=== PATIENT | male | born 1965 | race Caucasian/White ===

== ENCOUNTER 2024-11-16 13:09 | Emergency (ER) | payer MEDICARE, SELFPAY ==
[2024-11-16] VITALS (16 sets, daily range): BP systolic 133–164; BP diastolic 89–100; PULSE 72–85; TEMP 36.4; O2SAT 94–100; BMI 39.3
--- NOTE | 2024-11-16 13:31 | ECG_ITS ---
[facility] Test Date: 2024-11-16 Pat Name: ANNA TEE Department: Room: - Gender: Male Incident Response Coordinator: : [id number] Requested By: [id number] Order Number: [id number] Reading MD: SABAS MCRAE M.D. Measurements Intervals [place] Rate: 69 P: 38 NH: 166 QRS: 1 QRSD: 98 T: 78 QT: 390 QTc: 410 Interpretive Statements 1100 Sinus rhythm 1570 with occasional ventricular premature complexes 3134 Anterior myocardial infarction, age undetermined 8102 Low QRS voltage in chest leads 9150 abnormal ECG No previous ECG available for comparison Electronically Signed On 11-17-2024 21:41:19 EDT by SABAS MCRAE M.D.
[2024-11-16 13:39] LABS: Basophils Absolute Auto 0.1 10^3/uL (0.0-0.1); Eosinophils Absolute Auto 0.1 10^3/uL (0.0-0.7); Eosinophils Percent Auto 0.6 % (0.9-7.0); Hematocrit 44.8 % (42.0-54.0); Hemoglobin 14.5 g/dL (14.0-18.0); Immature Granulocytes Abs Auto 0.03 10^3/uL (0.00-0.03); Immature Granulocytes Pct Auto 0.4 % (0.0-0.5); Lymphocytes Absolute Auto 2.2 10^3/uL (1.2-3.8); Lymphocytes Percent Auto 26.6 % (20.5-60.0); Mean Corpuscular HGB Conc 32.4 g/dL (29.9-35.2); Mean Corpuscular Volume 89.6 fL (80.0-94.0); Mean Platelet Volume 10.6 fL (9.5-13.5); Monocytes Absolute Auto 0.7 10^3/uL (0.3-0.8); Monocytes Percent Auto 8.4 % (1.7-12.0); Neutrophils Absolute Auto 5.3 10^3/uL (1.4-6.5); Platelet Count 220 10^3/uL (150-450); Red Cell Distribution Width 13.2 % (11.0-15.0); White Blood Count 8.4 10^3/uL (4.0-11.0)
[2024-11-16 13:54] LABS: INR 1.02; Prothrombin Time 10.8 sec (9.0-11.6)
[2024-11-16 13:59] LABS: Alanine Aminotransferase 21 U/L (16-63); Albumin Globulin Ratio 1.1; Albumin Level 3.4 g/dL (3.4-5.0); Alkaline Phosphatase 75 U/L (46-116); Anion Gap 11.6; Aspartate Amino Transferase 17 U/L (15-37); BUN Creatinine Ratio 10.8; Bilirubin Total 0.6 mg/dL (0.2-1.0); Calcium 8.5 mg/dL (8.5-10.1); Carbon Dioxide 30.3 mmol/L (21.0-32.0); Chloride 103 mmol/L (98-107); Estimated GFR (African America >60 (>=60 mL/min/1.73m^2); Estimated GFR (Non-African Ame >60 (>=60 mL/min/1.73m^2); Globulin 3.2 g/dL; Glucose 102 mg/dL (74-106); Magnesium 1.9 mg/dL (1.8-2.4); Potassium 3.9 mmol/L (3.5-5.1); Sodium 141 mmol/L (136-145); Total Protein 6.6 g/dL (6.4-8.2); Troponin I High Sensitivity 11.5 pg/mL (4.0-76.1)
--- NOTE | 2024-11-16 14:32 | ED.DIZZY1 ---
HPI - Dizziness General Chief Complaint: Dizziness Stated Complaint: DIZZINESS Time Seen by Provider: 11/16/24 13:23 Source: patient Mode of arrival: walk-in History of Present Illness HPI Narrative: The patient is 58-year-old male with history of congestive heart failure with a defibrillator, coming to the ER with almost 1 week history of having generalized weakness sometimes dizziness, he mentioned that sometimes with episodes of dizziness associated with sense of anxiety, and sometimes like his heart racing, the patient is taking his NyQuil and DayQuil daily for the last few days at least since he started having his symptoms a week ago He denies any other complaints of cough fever shortness of breath nausea vomiting but he does have some generalized weakness and tiredness and fatigue Related Data Home Medications ?Medication ?Instructions ?Recorded ?Confirmed amitriptyline 25 mg tablet 25 mg PO DAILY 11/16/24 11/16/24 atorvastatin 80 mg tablet 80 mg PO DAILY 11/16/24 11/16/24 carvedilol 12.5 mg tablet 12.5 mg PO Q12H 11/16/24 11/16/24 furosemide 40 mg tablet 40 mg PO Q12H 11/16/24 11/16/24 metformin 500 mg tablet,extended 500 mg PO DAILY 11/16/24 11/16/24 release 24 hr pantoprazole 40 mg tablet,delayed 40 mg PO Q12H 11/16/24 11/16/24 release semaglutide 0.25 mg or 0.5 mg (2 0.25 mg subcut .weekly 11/16/24 11/16/24 mg/3 mL) subcutaneous pen injector (Ozempic) tamsulosin 0.4 mg capsule 0.4 mg PO Q24H 11/16/24 11/16/24 Allergies Allergy/AdvReac Type Severity Reaction Status Date / Time Penicillins AdvReac Severe Anaphylaxis Verified 11/16/24 13:15 Review of Systems ROS Status of ROS 10 or more systems reviewed and unremarkable except as noted in history and below PFSH PFSH Social History Little interest or pleasure in doing things: not at all Feeling down, depressed, or hopeless: not at all Exam Narrative Exam Narrative: Nurses notes and vital signs reviewed and patient is not hypoxic. General: Well-appearing and in no apparent distress. Skin: Warm, dry, no pallor noted. No rash. Head: Normocephalic, atraumatic. Neck: Supple, non-tender. Eye: Pupils are equal, round and EOMI. No scleral icterus. Cardiovascular: Regular Rate and Rhythm without murmur, gallop or rub. Respiratory: No accessory muscle use or respiratory distress. Lungs are clear to auscultation, no wheezing, rales or rhonchi Chest Wall: no tenderness Back: No midline thoracic or lumbar vertebral tenderness. No CVA tenderness Musculoskeletal: normal ROM, no calf or popliteal tenderness, no lower extremity edema/swelling GI: Abdomen is soft, non-distended. Normal bowel sounds. No masses appreciated. No tenderness to palpation. No rebound, guarding, or rigidity noted. Neurological: A&O x4. No cranial nerve dysfunction observed. No truncal ataxia. Moves all extremities. Sensation intact. Psychiatric: Cooperative and interactive. Normal mood and affect. Constitutional Vital Signs, click to edit/add: Last Vital Signs Temp 97.6 F 11/16/24 13:15 Pulse 73 11/16/24 15:30 Resp 17 11/16/24 15:30 BP 139/91 11/16/24 15:30 Pulse Ox 96 11/16/24 15:30 O2 Del Method Room Air 11/16/24 13:35 Course Vital Signs Vital signs: Vital Signs Temperature 97.6 F 11/16/24 13:15 Pulse Rate 73 11/16/24 13:15 Respiratory Rate 18 11/16/24 13:15 Blood Pressure 164/100 H 11/16/24 13:15 Pulse Oximetry 98 11/16/24 13:15 Temperature 97.6 F 11/16/24 13:15 Pulse Rate 73 11/16/24 15:30 Respiratory Rate 17 11/16/24 15:30 Blood Pressure 139/91 11/16/24 15:30 Pulse Oximetry 96 11/16/24 15:30 Oxygen Delivery Method Room Air 11/16/24 13:35 MDM - Dizziness MDM Narrative Medical decision making narrative: The patient EKG showing sinus rhythm with a heart rate of 69 there is marked irregularity mostly paced rhythm the patient have a history of pacemaker rate is [address] elevation or depression Chest x-ray showed no acute pathology CBC showed no acute pathology as well as chemistry and urinalysis and BNP and troponin are all normal The patient mentioned in his history that he is taken DayQuil and NyQuil daily and he does not know that he is not supposed to take any DayQuil because it have epinephrine at this, I explained to the patient that he is not supposed to take any medication that is not safe with his congestive heart failure Right now the patient will be discharged home with monitoring his symptoms he already have a defibrillator placed for possible tachyarrhythmia and there is no pathology detected in my workup today The patient is to come back to the ER in case of any symptoms or concerns The patient is to follow up with primary care physician in next 2-3 days or to return to the emergency department should any of the signs or symptoms worsen or new symptoms develop. The patient agrees with the following Diagnosis and Treatment plan and the patient will be discharged home. Lab Data Labs: Lab Results 11/16/24 11/16/24 Range/Units 13:25 14:25 WBC 8.4 (4.0-11.0) 10^3/uL RBC 5.00 (4.70-6.10) 10^6/uL Hgb 14.5 (14.0-18.0) g/dL Hct 44.8 (42.0-54.0) % MCV 89.6 (80.0-94.0) fL MCH 29.0 (25.9-34.0) pg MCHC 32.4 (29.9-35.2) g/dL RDW 13.2 (11.0-15.0) % Plt Count 220 (150-450) 10^3/uL MPV 10.6 (9.5-13.5) fL Neut % (Auto) 63.0 (43.0-75.0) % Lymph % (Auto) 26.6 (20.5-60.0) % [place] % (Auto) 8.4 (1.7-12.0) % Eos % (Auto) 0.6 L (0.9-7.0) % Baso % (Auto) 1.0 (0.2-2.0) % Neut # (Auto) 5.3 (1.4-6.5) 10^3/uL Lymph # (Auto) 2.2 (1.2-3.8) 10^3/uL [place] # (Auto) 0.7 (0.3-0.8) 10^3/uL Eos # (Auto) 0.1 (0.0-0.7) 10^3/uL Baso # (Auto) 0.1 (0.0-0.1) 10^3/uL Abs Immat Gran (auto) 0.03 (0.00-0.03) 10^3/uL Imm/Tot Granulo (auto) 0.4 (0.0-0.5) % PT 10.8 (9.0-11.6) sec INR 1.02 Sodium 141 (136-145) mmol/L Potassium 3.9 (3.5-5.1) mmol/L Chloride 103 (98-107) mmol/L Carbon Dioxide 30.3 (21.0-32.0) mmol/L Anion Gap 11.6 BUN 12.0 (7.0-18.0) mg/dL Creatinine 1.11 (0.70-1.30) mg/dL Est GFR ( Amer) >60 (>=60 mL/min/1.73m^2) Est GFR (Non-Af Amer) >60 (>=60 mL/min/1.73m^2) BUN/Creatinine Ratio 10.8 Glucose 102 (74-106) mg/dL Calcium 8.5 (8.5-10.1) mg/dL Magnesium 1.9 (1.8-2.4) mg/dL Total Bilirubin 0.6 (0.2-1.0) mg/dL AST 17 (15-37) U/L ALT 21 (16-63) U/L Alkaline Phosphatase 75 (46-116) U/L Troponin I High Sens 11.5 (4.0-76.1) pg/mL NT-Pro-B Natriuret Pep 230.0 (<=900.0) pg/mL Total Protein 6.6 (6.4-8.2) g/dL Albumin 3.4 (3.4-5.0) g/dL Globulin 3.2 g/dL Albumin/Globulin Ratio 1.1 Urine Color Lt. yellow (YELLOW) Urine Clarity Clear (CLEAR) Urine pH 6.0 (5.0-9.0) Ur Specific [place] <=1.005 A (1.005-1.025) Urine Protein Negative (NEG/TRACE) mg/dL Urine Glucose (UA) Negative (NEGATIVE) mg/dL Urine Ketones Negative (NEGATIVE) mg/dL Urine Occult Blood Trace-i (NEGATIVE) Urine Nitrite Negative (NEGATIVE) Urine Bilirubin Negative (NEGATIVE) Urine Urobilinogen 1.0 (0.2-1.0) EU/dL Ur Leukocyte Esterase Negative (NEGATIVE) Urine RBC 0-2 (0-2) #/HPF Urine WBC 0-2 A (NONE SEEN) #/HPF Ur Squamous Epith Cells None seen (NONE/RARE) #/LPF Urine Crystals None seen (None Seen) #/HPF Urine Bacteria None seen (NONE SEEN) #/HPF Urine Casts None seen (NONE SEEN) #/LPF Urine Mucus None seen (NONE SEEN) Ur Culture Indicated? No Discharge Plan Discharge Chief Complaint: Dizziness Clinical Impression: Post viral syndrome Patient Disposition: Home, Self-Care Time of Disposition Decision: 15:37 Condition: Good Prescriptions / Home Meds: No Action amitriptyline 25 mg tablet 25 mg PO DAILY atorvastatin 80 mg tablet 80 mg PO DAILY carvedilol 12.5 mg tablet 12.5 mg PO Q12H furosemide 40 mg tablet 40 mg PO Q12H metformin 500 mg tablet extended release 24 hr 500 mg PO DAILY pantoprazole 40 mg tablet,delayed release (DR/EC) 40 mg PO Q12H Ozempic 0.25 mg or 0.5 mg (2 mg/3 mL) pen injector 0.25 mg SUBCUT .weekly tamsulosin 0.4 mg capsule 0.4 mg PO Q24H Print Language: Irish Instructions: Viral Syndrome (ED) Referrals: Physician,Non-Staff, [Physician] - 1 week Discharge Date/Time: 11/16/24 15:43
[2024-11-16 14:36] LABS: Bilirubin Urine NEGATIVE (NEGATIVE); Blood Urine TRACE-I (NEGATIVE); Clarity Urine CLEAR (CLEAR); Color Urine LT. YELLOW (YELLOW); Glucose Urine UA NEGATIVE (NEGATIVE); Ketones Urine NEGATIVE (NEGATIVE); Leukocyte Esterase Urine NEGATIVE (NEGATIVE); Nitrite Urine NEGATIVE (NEGATIVE); Protein Urine NEGATIVE (NEG/TRACE); Specific Gravity Urine <=1.005 (1.005-1.025)
[2024-11-16 14:38] LABS: Urine Microscopic Indicated YES
[2024-11-16 14:55] LABS: Bacteria Urine NONE SEEN #/HPF (NONE SEEN); Cast Seen? NONE SEEN #/LPF (NONE SEEN); Crystals Seen? None Seen #/HPF (None Seen); Mucus Urine NONE SEEN (NONE SEEN); RBC Urine 0-2 #/HPF (0-2); Squamous Epithelial Cell Urine NONE SEEN #/LPF (NONE/RARE); Urine Culture Indicated NO; WBC Urine 0-2 #/HPF (NONE SEEN)
== END 2024-11-16 15:43 | disposition home or self-care (01) ==
PROVIDERS: Emergency Provider Emergency Medicine; PCP Family Medicine
DX: G93.31 Postviral fatigue syndrome (principal); Z95.810 Presence of automatic (implantable) cardiac defibrillator; R53.1 Weakness; I50.9 Heart failure, unspecified
CPT/HCPCS: 36415; 71045; 80053; 81001; 83735; 83880; 84484; 85025; 85610; 93005; 99285